=== PATIENT | female | born 2000 | race Caucasian/White ===

== ENCOUNTER → 2020-02-19 | Outpatient (CLI) | payer BC ==
--- NOTE | 2020-02-19 16:05 | Diagnostic Imaging Report ---
PROCEDURE: US Non-ob pelvis comp/trans. TECHNIQUE: Multiple real-time grayscale images were obtained of the pelvis in various projections endovaginally. Transabdominal imaging was also performed. INDICATION: Vaginal bleeding. FINDINGS: The uterus is anteverted and measures 8 x 4 x 4.8 cm. Endometrial thickness is 7 mm. There are no discrete myometrial or endometrial masses. Both ovaries are normal in size and morphology and demonstrate normal blood flow. There is no ascites. There are no adnexal masses. IMPRESSION: Unremarkable pelvic ultrasound. Dictated by: Dictated on workstation # [id number]
== END ==
LOC: RAD 13:14
PROVIDERS: ATTEND Surgery
DX: N93.8 Other specified abnormal uterine and vaginal bleeding (principal)
CPT/HCPCS: 76830; 76856

== ENCOUNTER → 2021-11-07 | Outpatient (CLI) | payer BC | LOC: FSOP 15:30 | PROVIDERS: ATTEND Family Medicine | DX: Z34.01 Encounter for supervision of normal first pregnancy, first trimester (principal); Z3A.00 Weeks of gestation of pregnancy not specified | CPT/HCPCS: 36415; 87491; 87591 ==

== ENCOUNTER → 2021-12-15 | Outpatient (CLI) | payer BC ==
--- NOTE | 2021-12-15 13:06 | Diagnostic Imaging Report ---
INDICATION: survey. TECHNIQUE: Multiple real-time grayscale images were obtained over the gravid uterus. COMPARISON: None. FINDINGS: There is a single live fetus in a breech presentation. heart rate was recorded at 146 BPM. Placenta is anterior. No previa is identified. Amniotic fluid volume is normal. Cervical length is 4.6 cm. survey shows kidneys, bladder and stomach to be unremarkable. brain is unremarkable. The four-chamber heart view and outflow tract views are somewhat limited. There is a three-vessel cord with normal insertion. spine is unremarkable. Biometrical measurements are as follows: Biparietal 5.07 cm, age 21 weeks 3 days. Head circumference 19.06 cm, age 21 weeks 3 days. Abdominal circumference 15.80 cm, age 21 weeks 0 days. Femur length 3.52 cm, age 21 weeks 1 days. Sonographic estimate age: 21 weeks 2 days. Sonographic estimated date of delivery: 04/25/2022. Estimated Weight: 396 gm (+/- 58 gm). LMP percentile: 33%. heart rate: 146 beats per minute. number: 1 of 1. IMPRESSION: Single live IUP of 21 weeks 2 days gestational age. Estimated date of confinement sonographically is 04/25/2022. survey is unremarkable, although the four-chamber heart view and outflow tract are somewhat limited due to position. Dictated by: Dictated on workstation # [id number]
== END ==
LOC: RAD 10:00
PROVIDERS: ATTEND Family Medicine
DX: Z34.02 Encounter for supervision of normal first pregnancy, second trimester (principal); Z3A.21 21 weeks gestation of pregnancy
CPT/HCPCS: 76805

== ENCOUNTER → 2022-01-31 | Outpatient (CLI) | payer BC ==
[2022-01-31 15:15] LABS: BASOPHILS % (AUTO) 0 % (0-10); EOSINOPHILS # (AUTO) 0.1 10^3/uL (0.0-0.3); EOSINOPHILS % (AUTO) 0 % (0-10); HEMATOCRIT 33 % (35-52); HEMOGLOBIN 11.5 g/dL (11.5-16.0); LYMPHOCYTES # (AUTO) 2.6 10^3/uL (1.0-4.0); LYMPHOCYTES % (AUTO) 21 % (12-44); MEAN CORPUSCULAR HEMOGLOBIN 30 pg (25-34); MEAN CORPUSCULAR HGB CONC 35 g/dL (32-36); MEAN CORPUSCULAR VOLUME 87 fL (80-99); MEAN PLATELET VOLUME 10.1 fL (9.0-12.2); MONOCYTES # (AUTO) 0.5 10^3/uL (0.0-1.0); MONOCYTES % (AUTO) 4 % (0-12); NEUTROPHILS # (AUTO) 8.8 10^3/uL (1.8-7.8); NEUTROPHILS % (AUTO) 73 % (42-75); PLATELET COUNT 254 10^3/uL (130-400)
[2022-01-31 15:36] LABS: BAND NEUTROPHILS 0 %; BASOPHILS % (MANUAL) 0 %; EOSINOPHILS % (MANUAL) 0 %; LYMPHOCYTES % (MANUAL) 23 %; MONOCYTES % (MANUAL) 5 %; NEUTROPHILS % (MANUAL) 72 %
== END ==
LOC: LAB FS 14:40
PROVIDERS: ATTEND Family Medicine
DX: O28.3 Abnormal ultrasonic finding on antenatal screening of mother (principal); Z3A.28 28 weeks gestation of pregnancy
CPT/HCPCS: 36415; 82950; 85007; 85027; 86780

== ENCOUNTER → 2022-02-16 | Outpatient (CLI) | payer BC ==
--- NOTE | 2022-02-16 16:01 | Diagnostic Imaging Report ---
INDICATION: Follow-up four-chamber heart and outflow tracts TECHNIQUE: Multiple real-time grayscale images were obtained over the gravid uterus. COMPARISON: 12/15/2021 FINDINGS: There is a single live intrauterine gestation in cephalic presentation. The cervix is not well seen due to shadowing from the head, but measures approximately 3.7 cm in length. The placenta is anterior without evidence of previa. heart rate measures 136 BPM. The amniotic fluid index measures 14.7 cm. The four-chamber heart is well seen. The right and left ventricular outflow tracks are well seen. No abnormality is seen. IMPRESSION: 1. Single live intrauterine gestation. A four-chamber heart and right and left ventricular outflow tracts are well seen. Dictated by: Dictated on workstation # [id number]
== END ==
LOC: RAD 12:00
PROVIDERS: ATTEND Family Medicine
DX: O28.3 Abnormal ultrasonic finding on antenatal screening of mother (principal); Z3A.00 Weeks of gestation of pregnancy not specified
CPT/HCPCS: 76816

== ENCOUNTER 2022-04-23 06:40 | Inpatient (IN) | payer OTHER ==
[2022-04-23] VITALS (29 sets, daily range): BP systolic 100–145; BP diastolic 66–95
[~2022-04-23] VITALS: Ht 165.1 cm; Wt 79.2 kg
[2022-04-23 07:16] LABS: BILIRUBIN,URINE NEGATIVE (NEGATIVE); CLARITY,URINE CLEAR; COLOR,URINE YELLOW; GLUCOSE, URINE (UA) NEGATIVE (NEGATIVE); KETONES,URINE NEGATIVE (NEGATIVE); LEUKOCYTE ESTERASE ,URINE 2+ (NEGATIVE); NITRITE,URINE NEGATIVE (NEGATIVE); PH,URINE 7.5 (5-9); PROTEIN,URINE NEGATIVE (NEGATIVE)
[2022-04-23 07:45] LABS: BACTERIA,URINE MODERATE /HPF
[2022-04-23] MEDS ORDERED: AMPICILLIN FOR IV USE 2,000 MG in NS (IVPB) 50 ML IV ONE (10:00)
[2022-04-23 10:35] LABS: BASOPHILS % (AUTO) 0 % (0-10); EOSINOPHILS % (AUTO) 0 % (0-10); HEMATOCRIT 36 % (35-52); LYMPHOCYTES # (AUTO) 2.3 10^3/uL (1.0-4.0); LYMPHOCYTES % (AUTO) 20 % (12-44); MEAN CORPUSCULAR HEMOGLOBIN 29 pg (25-34); MEAN CORPUSCULAR HGB CONC 33 g/dL (32-36); MEAN CORPUSCULAR VOLUME 88 fL (80-99); MEAN PLATELET VOLUME 10.7 fL (9.0-12.2); MONOCYTES # (AUTO) 0.5 10^3/uL (0.0-1.0); MONOCYTES % (AUTO) 4 % (0-12); NEUTROPHILS # (AUTO) 8.4 10^3/uL (1.8-7.8); NEUTROPHILS % (AUTO) 75 % (42-75); PLATELET COUNT 219 10^3/uL (130-400); WHITE BLOOD COUNT 11.3 10^3/uL (4.3-11.0)
[2022-04-23] MEDS: D5 LR IV SOLUTION 1,000 ML IV SCH ×2 (10:41→19:56)
[2022-04-23] MEDS: AMPICILLIN FOR IV USE 1,000 MG in NS (IVPB) 50 ML IV SCH ×4 (10:42→22:11)
--- NOTE | 2022-04-23 10:47 | History & Physical-OB ---
OB - Chief Complaint & HPI Date/Time Date of Admission: Date of Admission: Apr 23, 2022 at 09:45 Date seen by a Provider: Apr 23, 2022 Time Seen by a Provider: 10:30 Chief Complaint/History OB-Reason for Admission/Chief: Onset of Labor Hx : 1 Hx Para: 0 Expected Date of Delivery: Apr 25, 2022 Gestational Age in Weeks: 39 Gestational Age in Days: 5 Other reason for admission: Patient of Dr. Kay that transferred to Dr. Cosme who presented in active labor. Denies any concerns with . Contractions became regular this am. Admission Nurse Assessment Rev: Yes History of Labs GBS pos Allergies and Home Medications Allergies Coded Allergies: No Known Drug Allergies (Unverified , 04/23/22) Patient Home Medication List Home Medication List Reviewed: Yes OB - History Hx of Present Care: Yes Ultrasounds: Normal mid trimester US Obstetrical Complications: None Medical Complications: None Obstetrical History Hx : 1 Hx Para: 0 Hx Total # of Abortions (Spona: 0 Patient Past Medical History n/a Social History/Family History Alcohol Use: Denies Use Recreational Drug Use: No 2nd Hand Smoke Exposure: No Immunizations Influenza Vaccine Up-to-Date: No; Not Current Hepatitis A: Yes Hepatitis B: Yes OB - Admission Exam Physical Exam Vitals: Vital Signs 04/23/22 07:35 Temp 36.9 Pulse 82 Resp 20 Pulse Ox 97 O2 Delivery Room Air HEENT: NCAT Heart: Rhythm Normal Lungs: Clear Abdomen: Gravid Extremities: Normal Reflexes: Normal Cervical Dilatation: 3cm Effacement: 75% Station: -1 Membranes: Intact Heart Rate: 130's Accelerations: Accelerations Present Decelerations: No Decelerations Short Term Variability: Present Forensic Accountant Variability: Average (6-25) Contractions on Admission: < 5 Minutes Apart Intensity: Firm Labs Laboratory Tests Test 04/23/22 06:51 04/23/22 10:23 Range/Units Urine Color YELLOW Urine Clarity CLEAR Urine pH 7.5 5-9 Urine Specific [place] <=1.005 1.016-1.022 Urine Protein NEGATIVE NEGATIVE Urine Glucose (UA) NEGATIVE NEGATIVE Urine Ketones NEGATIVE NEGATIVE Urine Nitrite NEGATIVE NEGATIVE Urine Bilirubin NEGATIVE NEGATIVE Urine Urobilinogen 0.2 < = 1.0 MG/DL Urine Leukocyte Esterase 2+ H NEGATIVE Urine RBC (Auto) NEGATIVE NEGATIVE Urine RBC NONE /HPF Urine WBC 5-10 H /HPF Urine Squamous Epithelial Cells 5-10 /HPF Urine Crystals NONE /LPF Urine Bacteria MODERATE H /HPF Urine Casts NONE /LPF Urine Mucus NEGATIVE /LPF Urine Culture Indicated YES White Blood Count 11.3 H 4.3-11.0 10^3/uL Red Blood Count 4.13 3.80-5.11 10^6/uL Hemoglobin 12.0 11.5-16.0 g/dL Hematocrit 36 35-52 % Mean Corpuscular Volume 88 80-99 fL Mean Corpuscular Hemoglobin 29 25-34 pg Mean Corpuscular Hemoglobin Concent 33 32-36 g/dL Red Cell Distribution Width 12.9 10.0-14.5 % Platelet Count 219 130-400 10^3/uL Mean Platelet Volume 10.7 9.0-12.2 fL Immature Granulocyte % (Auto) 0 % Neutrophils (%) (Auto) 75 42-75 % Lymphocytes (%) (Auto) 20 12-44 % Monocytes (%) (Auto) 4 0-12 % Eosinophils (%) (Auto) 0 0-10 % Basophils (%) (Auto) 0 0-10 % Neutrophils # (Auto) 8.4 H 1.8-7.8 10^3/uL Lymphocytes # (Auto) 2.3 1.0-4.0 10^3/uL Monocytes # (Auto) 0.5 0.0-1.0 10^3/uL Eosinophils # (Auto) 0.0 0.0-0.3 10^3/uL Basophils # (Auto) 0.0 0.0-0.1 10^3/uL Immature Granulocyte # (Auto) 0.1 0.0-0.1 10^3/uL OB - Assessment/Plan/Diagnosis Assessment Assessment: active labor Admission Dx 21 yo @ 39 weeks Active labor GBS pos Admission Status: Inpatient Order (span 2 midnights) Reason for Inpatient Admission: Active labor at 39 weeks Plan Plan: Expectant Management Other Plan Start on Amp for GBS prophylaxis. BECKA CABRALES DO Apr 23, 2022 10:47
[2022-04-23] MEDS: ONDANSETRON 4 MG/2 ML (SDV) Z0FRAN IVP PRN (17:32)
[2022-04-23] MEDS ORDERED: FAMOTIDINE 20MG/2ML IV (PEPCID) IVP ONE (17:45)
[2022-04-23] MEDS: CATHETER FLUSH 10 ML SYR IV SCH ×2 (21:55→22:00)
[2022-04-23] MEDS ORDERED: HYDROmorphone 2 MG/ML VIAL (DILAUDID) IV ONE (23:30)
[2022-04-23] MEDS ORDERED: HYDROmorphone 2 MG/ML VIAL (DILAUDID) ONE (23:31)
[2022-04-24] VITALS (12 sets, daily range): BP systolic 114–157; BP diastolic 75–90
[2022-04-24] MEDS ORDERED: LIDOCAINE/EPI 2% 1:200,00 (XYLOCAINE) 10 ML VIAL ONE (01:33)
[2022-04-24] MEDS ORDERED: OXYTOCIN PRE-MIX DRIP 500 ML IV ONE ×2 (01:33→02:55)
[2022-04-24] MEDS: OXYTOCIN PRE-MIX DRIP 500 ML IV SCH ×2 (02:16→02:56)
[2022-04-24] MEDS ORDERED: METHYLERGONOVINE 0.2 MG/ML (METHERGINE) AMP ONE (02:20)
[2022-04-24] MEDS ORDERED: METHYLERGONOVINE 0.2 MG/ML (METHERGINE) AMP IM ONE (02:24)
--- NOTE | 2022-04-24 03:14 | OB Labor & Delivery Record ---
L&D History Date of Service Date of Service: Apr 24, 2022 History Expected Date of Delivery: Apr 25, 2022 Gestational Age in Weeks: 39 Hx : 1 Hx Para: 0 Complications Events: Routine care Operative Indications (Cesarea: N/A-Vaginal Delivery Intrapartal Events: None L&D Stage1 Stage One Onset of Labor - Date: Apr 24, 2022 Monitors and Tracing Monitor Mode: External Heart Rate: 110 Monitor Decelerations: None Station: -1 Vital Signs VS - Last 72 Hours, by Label 04/23/22 04/23/22 04/23/22 04/23/22 07:15 07:35 08:10 10:00 Temp 36.9 36.9 37.1 Pulse 82 82 83 77 Resp 20 20 20 20 B/P (MAP) 133/91 (105) 125/77 (93) Pulse Ox 97 97 O2 Delivery Room Air Room Air Room Air Room Air 04/23/22 04/23/22 04/23/22 04/23/22 11:30 12:30 13:21 13:39 Temp 36.9 36.8 36.9 Pulse 74 82 71 78 Resp 20 20 20 20 B/P (MAP) 134/93 (107) 100/66 (77) 132/84 (100) 126/87 (100) O2 Delivery Room Air Room Air Room Air Room Air 04/23/22 04/23/22 04/23/22 04/23/22 13:54 14:10 14:25 14:45 Temp 37.1 37.1 Pulse 82 76 83 78 Resp 20 20 20 20 B/P (MAP) 126/73 (90) 122/84 (97) 128/76 (93) 128/85 (99) O2 Delivery Room Air Room Air Room Air Room Air 04/23/22 04/23/22 04/23/22 04/23/22 15:10 15:25 15:40 15:55 Pulse 80 78 75 70 Resp 20 20 20 20 B/P (MAP) 137/83 (101) 125/79 (94) 121/89 (100) 133/94 (107) O2 Delivery Room Air Room Air Room Air Room Air 04/23/22 04/23/22 04/23/22 04/23/22 16:10 16:40 17:35 17:52 Pulse 71 105 75 87 Resp 20 20 20 20 B/P (MAP) 129/90 (103) 144/95 (111) 145/90 (108) 134/87 (103) O2 Delivery Room Air Room Air Room Air Room Air 04/23/22 04/23/22 04/23/22 04/23/22 18:05 18:20 18:51 19:08 Temp 36.8 Pulse 81 73 75 78 Resp 20 20 20 B/P (MAP) 127/69 (88) 131/83 (99) 132/80 (97) 125/82 (96) O2 Delivery Room Air Room Air Room Air Room Air 04/23/22 04/23/22 04/23/22 04/23/22 19:21 20:39 21:34 22:01 Temp 36.9 36.5 Pulse 81 67 Resp 18 20 B/P (MAP) 116/83 (94) 140/81 (100) 123/83 (96) O2 Delivery Room Air Room Air Room Air 04/23/22 04/23/22 04/23/22 04/23/22 22:34 23:39 23:44 23:59 Pulse 80 84 69 77 Resp 16 B/P (MAP) 126/81 (96) 138/85 (102) Pulse Ox 91 99 99 O2 Delivery Room Air Room Air Room Air Room Air 04/24/22 00:26 Temp 36.3 Pulse 85 Resp 18 B/P (MAP) 128/82 (97) O2 Delivery Room Air Rupture of Membranes Spontaneous Ruture of Membrane: No Amniotic Membrane Rupture Time: 1249 Amniotic Membrane Fluid Desc.: Clear Vaginal Bleeding Description: Normal Show Progress/Notes Patient progressed with no further augmentation and received one dose of dilaudid 1 mg IV. L&D Stage2 Stage Two Stage II Date: Apr 24, 2022 Monitors and Tracing Monitor Mode: External Heart Rate: 110 Monitor Decelerations: None Position: Right Occiput Anterior Presentation: Vertex Cord Descript/Complications Cord Vessel Description: 3 Vessels Complications nuchal cord reduced x 1 Delivery Type Delivery Method: Spontaneous Vaginal Anterior Shoulder: Right Episiotomy/Perineal Laceration Laceraction(s)/Extensions: Yes Episiotomy Description: Vaginal Extension/lac, 1st degree Degree (describe repair) 1st degree vaginal laceration repaired using 3-0 rapide vicryl suture. Condition of Infant Delivery 1 minute Comment: 9 5 minute Comment: 9 Notes Live female weight 6lbs 14 oz Condition of Condition of : Living Exam: No Observed Abnormalities Resuscitation Resuscitation: N/A - Spontaneous Resp L&D Stage3 Stage Three Stage III Date: Apr 24, 2022 Pictocin Pitocin Administration Comment: 30 mu wide open at delivery of placenta Placenta Delivery Placenta Delivery: Spontaneous Delivery Summary Summary Estimated blood loss (mL): 300 Attending at delivery: Becka Cabrales DO Condition of Delivery Examined: Cervix Examined, Uterus Explored Post Hemorrhage: No Condition of Mother stable Condition of (s) stable BECKA CABRALES DO Apr 24, 2022 03:14
[2022-04-24] MEDS ORDERED: WITCH HAZEL(TUCKS) 40 EA JAR TOP PRN (03:15)
[2022-04-24] MEDS ORDERED: MEASLES,MUMPS,RUBELLA 1 EA INJ SQ ONE (03:15)
[2022-04-24] MEDS ORDERED: DIBUCAINE 1% OINTMENT 30 GM TUBE TOP PRN (03:15)
[2022-04-24] MEDS ORDERED: BENZOCAINE/MENTHOL (DERMOPLAST) 56 ML CAN TP PRN (03:15)
[2022-04-24] MEDS ORDERED: NALOXONE 0.4 MG/ML 1 ML (NARCAN) VIAL IV PRN (03:15)
[2022-04-24] MEDS ORDERED: HYDROcodone/APAP 5 MG/325 MG (LORTAB) TAB PO PRN (03:15)
[2022-04-24] MEDS ORDERED: TETANUS,DIPTH,PERTUSS P/F (BOOSTRIX) 0.5 ML VIAL IM ONE (03:15)
[2022-04-24] MEDS: D5 LR IV SOLUTION 1,000 ML IV SCH (03:57)
[2022-04-24] MEDS: ONDANSETRON 4 MG/2 ML (SDV) Z0FRAN IVP PRN (04:24)
[2022-04-24] MEDS ORDERED: IBUPROFEN 600 MG (MOTRIN) TAB PO ONE (04:31)
[2022-04-24] MEDS: IBUPROFEN 600 MG (MOTRIN) TAB PO SCH ×2 (04:32→09:59)
[2022-04-24] MEDS ORDERED: CATHETER FLUSH 10 ML SYR IV SCH (06:00)
[2022-04-24] MEDS: CATHETER FLUSH 10 ML SYR IV SCH (06:05)
[2022-04-24] MEDS ORDERED: PRENATAL VITAMIN 1 EA TAB PO SCH (07:00)
[2022-04-24] MEDS ORDERED: FERROUS SULF 325 MG (IRON) TAB PO SCH (09:00)
[2022-04-24] MEDS ORDERED: DOCUSATE SODIUM 100 MG (COLACE) CAP PO SCH (09:00)
--- NOTE | 2022-04-24 14:07 | Progress Note ---
Standard Progress Note Progress Notes/Assess & Plan Date Seen by a Provider: Apr 24, 2022 Time Seen by a Provider: 14:00 Final Diagnosis Patient not seen by provider prior to dismissal. Notified by RN that patient is leaving against medical advisement. "You cannot legally keep me here." Taking with her despite recommendations from Peds as well for + GBS status. BECKA CABRALES DO Apr 24, 2022 2:07 pm
== END 2022-04-24 15:20 | disposition home or self-care (01) | DRG 807 ==
LOC: WSo 06:40 → LDRP 06:46 → WSo 10:11 → LDRP 04-24 05:59
PROVIDERS: ADMIT Obstetrics & Gynecology; ATTEND Obstetrics & Gynecology
PROC: 10E0XZZ Delivery of Products of Conception, External Approach (ICD-10-PCS; principal; 2022-04-23)
PROC: 0HQ9XZZ Repair Perineum Skin, External Approach (ICD-10-PCS; 2022-04-23)
DX: O99.824 Streptococcus B carrier state complicating childbirth (principal); Z37.0 Single live birth; Z3A.39 39 weeks gestation of pregnancy; O69.81X0 Labor and delivery complicated by cord around neck, without compression, not applicable or unspecified; O70.0 First degree perineal laceration during delivery
CPT/HCPCS: 36415; 81000; 85025; 86850; 86900; 86901; 87088